=== PATIENT | female | born 1990 | race Caucasian/White ===

== ENCOUNTER 2023-09-09 15:08 | Outpatient (CLI) | payer OTHER, SELFPAY | END 2023-09-09 15:09 | disposition home or self-care (01) | PROVIDERS: PCP Physician Assistant Medical; Visit Provider Emergency Medicine | DX: R10.9 Unspecified abdominal pain (principal); K59.00 Constipation, unspecified | CPT/HCPCS: 80053; 86140; 86258; 86364 ==

== ENCOUNTER 2023-09-16 08:42 | Outpatient (CLI) | payer OTHER, SELFPAY | END 2023-09-16 08:43 | disposition home or self-care (01) | LOC: NFLDREF 09-18 06:55 | PROVIDERS: PCP Physician Assistant Medical; Referring Provider Physician Assistant Medical; Visit Provider Emergency Medicine | DX: K59.00 Constipation, unspecified (principal); R63.0 Anorexia | CPT/HCPCS: 84443 ==

== ENCOUNTER 2023-10-06 07:45 | Outpatient (CLI) | payer OTHER, SELFPAY ==
[2023-10-06 08:02] LABS: Ur HCG Qualitative* Negative (Negative)
--- NOTE | 2023-10-06 08:57 | W.ANESCHARGE ---
Anesthesia Charges Start Date/Time Anesthesia Start Date: 10/06/23 Anesthesia Start Time: 08:20 Stop Date/Time Anesthesia Stop Date: 10/06/23 Anesthesia Stop Time: 08:53
--- NOTE | 2023-10-06 12:23 | W.ANESCHARGE ---
Anesthesia Charges Start Date/Time Anesthesia Start Date: 10/06/23 Anesthesia Start Time: 08:20 Stop Date/Time Anesthesia Stop Date: 10/06/23 Anesthesia Stop Time: 08:53
== END 2023-10-06 07:46 | disposition home or self-care (01) ==
LOC: OP CLINIC 07:45
PROVIDERS: PCP Physician Assistant Medical; Visit Provider Surgery
DX: K59.04 Chronic idiopathic constipation (principal)
CPT/HCPCS: 00812; 45378; 81025; J2704